=== PATIENT | male | born 2000 | race Caucasian/White ===

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

== ENCOUNTER 2020-06-19 20:57 | Emergency (ER) | payer MEDICAID ==
[~2020-06-19] VITALS: Ht 177.8 cm; Wt 72.7 kg
[2020-06-19 21:41] LABS: APPEARANCE,URINE CLOUDY (CLEAR); BILIRUBIN,URINE NEGATIVE (NEGATIVE); GLUCOSE, URINE (UA) NEGATIVE (NEGATIVE); KETONES,URINE NEGATIVE (NEGATIVE); LEUKOCYTE ESTERASE ,URINE LARGE (NEGATIVE); NITRATE,URINE NEGATIVE (NEGATIVE); OCCULT BLOOD,URINE SMALL (NEGATIVE); PROTEIN,URINE POS 1+ (NEGATIVE)
[2020-06-19 22:03] LABS: WBC,URINE >100 /HPF (0-5)
[2020-06-19 22:04] LABS: BACTERIA,URINE Moderate /HPF (None Seen); SQUAMOUS EPITHELIAL CELL,UR Few /LPF (None Seen)
[2020-06-19] MEDS ORDERED: AZITHROMYCIN 500 MG TABLET PO ONE (22:15)
[2020-06-19] MEDS ORDERED: CefTRIAXone 1 GM/DEXTROSE 50 ML IV ONE (22:15)
[2020-06-19] MEDS ORDERED: MetroNIDAZOLE 500 MG TABLET PO ONE (22:45)
[2020-06-19] MEDS ORDERED: CefTRIAXone SODIUM 1 GM/VIAL IM ONE (22:45)
[2020-06-19 23:01] VITALS: BP 132/65
== END 2020-06-19 22:50 | disposition home or self-care (01) ==
LOC: EMS 20:57
DX: N34.2 Other urethritis (principal); J45.909 Unspecified asthma, uncomplicated; Z91.013 Allergy to seafood
CPT/HCPCS: 81001; 87086; 87491; 87591; 96372; 99283; J0696

== ENCOUNTER 2021-02-17 16:16 | Emergency (ER) | payer MEDICAID ==
[~2021-02-17] VITALS: Ht 175.3 cm; Wt 72.7 kg
[2021-02-17] MEDS ORDERED: ACET-3385 PO (16:21)
[2021-02-17] MEDS ORDERED: IBUPROFEN 600 MG TABLET PO ONE (18:15)
[2021-02-17] MEDS ORDERED: LIDOCAINE 5% TRANSDERMAL PATCH TD ONE (18:15)
[2021-02-17 18:56] LABS: BASOPHILS % (AUTO) 0.5 % (0.0-2.0); EOSINOPHILS % (AUTO) 2.3 % (1.0-6.0); HEMATOCRIT 44.6 % (41-53); HEMOGLOBIN 14.5 g/dL (13.5-17.5); LYMPHOCYTES # (AUTO) 1.5 K/uL (1.0-4.8); LYMPHOCYTES % (AUTO) 14.8 % (22.0-44.0); MEAN CORPUSCULAR HEMOGLOBIN 26.4 pg (26.0-34.0); MEAN CORPUSCULAR HGB CONC 32.5 G/dL (31.0-37.0); MEAN CORPUSCULAR VOLUME 81 fL (80-100); MONOCYTES # (AUTO) 0.9 K/uL (0.1-1.0); MONOCYTES % (AUTO) 8.4 % (2.0-9.0); NEUTROPHILS # (AUTO) 7.6 K/uL (1.8-7.7); PLATELET COUNT (AUTO) 201 K/uL (150-450); RED BLOOD CELL COUNT(AUTO) 5.49 MIL/uL (4.50-5.90); RED CELL DISTRIBUTION WIDTH 14.3 % (11.5-14.5)
[2021-02-17 19:06] LABS: ANION GAP 9 mmol/L (8-16); CALCIUM, TOTAL 8.8 mg/dL (8.8-10.5); CARBON DIOXIDE 28 mmol/L (22-29); CHLORIDE 102 mmol/L (98-107); CREATININE 0.89 mg/dL (0.60-1.30); GLOMERULAR FILTR. RATE CALC > 60 mL/min (>60); GLUCOSE,RANDOM 99 mg/dL (70-110); POTASSIUM 3.7 mmol/L (3.5-5.1); SODIUM SERUM 139 mmol/L (136-145); UREA NITROGEN, BLOOD 12 mg/dL (7-18)
[2021-02-17 19:12] LABS: ALANINE AMINOTRANSFERASE 21 U/L (12-78); ALBUMIN 4.4 g/dL (3.4-5.0); ALKALINE PHOSPHATASE 85 U/L (46-116); ASPARTATE AMINOTRANSFERASE 10 U/L (15-37); BILIRUBIN,TOTAL 0.4 mg/dL (0.1-1.0); TOTAL PROTEIN, SERUM 7.4 g/dL (6.4-8.2)
[2021-02-17] MEDS ORDERED: SODIUM CHLORIDE 0.9% 100 ML ONE (19:36)
[2021-02-17] MEDS ORDERED: IOHEXOL 350 MG/ML 100 ML VIAL ONE (19:37)
[2021-02-17 21:15] VITALS: BP 132/92
== END 2021-02-17 21:45 | disposition home or self-care (01) ==
LOC: EMS 16:17
DX: M84.48XA Pathological fracture, other site, initial encounter for fracture (principal); R07.81 Pleurodynia; J45.909 Unspecified asthma, uncomplicated; Z91.013 Allergy to seafood; Z79.899 Other long term (current) drug therapy
CPT/HCPCS: 36415; 71046; 71260; 80053; 85025; 99285; A9575; J7050

== ENCOUNTER 2022-04-27 22:31 | Emergency (ER) | payer MEDICAID ==
[~2022-04-27] VITALS: Ht 177.8 cm; Wt 72.7 kg
[~2022-04-27 22:31] MED LIST changes: +ACET-3385 PO
[2022-04-28] MEDS ORDERED: OxyCODONE HCL/ACETAMINOPHEN 5-325 MG TABLET PO ONE (01:30)
[2022-04-28] MEDS ORDERED: KETOROLAC TROMETHAMINE 60 MG/2 ML VIAL IM ONE (01:30)
[2022-04-28] MEDS ORDERED: PERCT PO (01:41)
[2022-04-28] MEDS ORDERED: IBUP-2070 PO (01:41)
[2022-04-28 02:05] VITALS: BP 133/78
== END 2022-04-28 02:06 | disposition home or self-care (01) ==
LOC: EMS 22:33
DX: S83.91XA Sprain of unspecified site of right knee, initial encounter (principal); J45.909 Unspecified asthma, uncomplicated; F12.90 Cannabis use, unspecified, uncomplicated; Z79.899 Other long term (current) drug therapy; Z88.8 Allergy status to other drugs, medicaments and biological substances; X50.9XXA Other and unspecified overexertion or strenuous movements or postures, initial encounter; Y93.89 Activity, other specified; Y92.89 Other specified places as the place of occurrence of the external cause; Y99.8 Other external cause status
CPT/HCPCS: 99283; 29505; 73562; 96372; J1885

== ENCOUNTER 2022-11-21 14:05 | Emergency (ER) | payer MEDICAID ==
[~2022-11-21] VITALS: Ht 177.8 cm; Wt 77.3 kg
[~2022-11-21 14:05] MED LIST changes: +IBUP-1492 PO; +PERCT PO
[2022-11-21 15:28] VITALS: BP 150/80
== END 2022-11-21 15:51 | disposition home or self-care (01) ==
LOC: EMS 14:06
DX: J45.909 Unspecified asthma, uncomplicated (principal); Z02.89 Encounter for other administrative examinations; F12.90 Cannabis use, unspecified, uncomplicated; Z91.013 Allergy to seafood
CPT/HCPCS: 99281; Z7502